=== PATIENT | female | born 1960 | race Caucasian/White ===

== ENCOUNTER 2019-01-28 09:26 | Emergency (ER) | payer OTHER ==
[2019-01-28 10:55] LABS: Absolute Lymphocytes (CBC) 1.7 K/uL (0.7-4.9); Basophils % 0.8 % (0-1.3); Hematocrit 42.7 % (36.0-45.0); Lymphocytes % 33.3 % (15.3-44.8); MPV 8.4 fL (7.6-11.3); RBC Red Blood Cell Count 4.62 M/uL (3.86-4.86)
[2019-01-28 11:13] LABS: Albumin 3.4 g/dL (3.4-5.0); Bilirubin Total 0.3 mg/dL (0.2-1.0); Potassium 4.1 mmol/L (3.5-5.1); Protein, Total 7.4 g/dL (6.4-8.2)
--- NOTE | 2019-01-28 11:34 | ER ---
Nurse's Notes [facility] Name: Karla Morales Age: 58 yrs Sex: Female : 1960 Arrival Date: 01/28/2019 Time: 09:31 Bed 7 Private MD: Diagnosis: Paresthesia of skin;Idiopathic peripheral autonomic neuropathy Presentation: 01/28 09:37 Presenting complaint: Patient states: Numbness to the face that started approx 1 week sg ago, reports feeling the numbness to the lips 1 week ago that has now spread to the cheek and left side of face. pt denies numbness/weakness in extremities at this time. Transition of care: patient was not received from another setting of care. Onset of symptoms was January 28, 2019. Risk Assessment: Do you want to hurt yourself or someone else? Patient reports no desire to harm self or others. Initial Sepsis Screen: Does the patient meet any 2 criteria? No. Patient's initial sepsis screen is negative. Does the patient have a suspected source of infection? No. Patient's initial sepsis screen is negative. Care prior to arrival: None. 09:37 Acuity: MARY 3 sg 09:37 Method Of Arrival: Ambulatory sg Historical: - Allergies: 09:48 PENICILLINS; sg - Home Meds: 09:48 lisinopril 20 mg Oral tab 1 tab once daily [Active]; sertraline 50 mg oral tab 1 tab sg once daily [Active]; simvastatin 20 mg Oral tab 1 tab once daily [Active]; - PMHx: 09:48 Anxiety; Depression; sg - PSHx: 09:48 None; sg - Immunization history:: Adult Immunizations not up to date. - Social history:: Smoking status: Patient/guardian denies using tobacco. - Ebola Screening: : Patient negative for fever greater than or equal to 101.5 degrees Fahrenheit, and additional compatible Ebola Virus Disease symptoms Patient denies exposure to infectious person Patient denies travel to an Ebola-affected area in the 21 days before illness onset No symptoms or risks identified at this time. Screenin:52 Abuse screen: Denies threats or abuse. Nutritional screening: No deficits noted. tw2 Tuberculosis screening: No symptoms or risk factors identified. Fall Risk None identified. Assessment: 10:34 General: Appears in no apparent distress. well groomed, well developed, well nourished, sg Behavior is calm, cooperative, appropriate for age. Pain: Denies pain. Neuro: Level of Consciousness is awake, alert, obeys commands, Oriented to person, place, time, situation, Land Economist are equal bilaterally Moves all extremities. Full function Gait is steady, Speech is normal, Facial symmetry appears normal, Pupils are PERRLA, Numbness in left cheek and mouth. Cardiovascular: Heart tones S1 S2 present Capillary refill is brisk in bilateral fingers Patient's skin is warm and dry. Chest pain is denied. Respiratory: Airway is patent Respiratory effort is even, unlabored, Respiratory pattern is regular, symmetrical. GI: No signs and/or symptoms were reported involving the gastrointestinal system. : No signs and/or symptoms were reported regarding the genitourinary system. EENT: No signs and/or symptoms were reported regarding the EENT system. Derm: Skin is pink, warm \T\ dry. Musculoskeletal: Circulation, motion, and sensation intact. Range of motion: intact in all extremities. 11:18 Reassessment: Patient appears in no apparent distress at this time. No changes from tw2 previously documented assessment. Patient and/or family updated on plan of care and expected duration. Pain level reassessed. Patient is alert, oriented x 3, equal unlabored respirations, skin warm/dry/pink. Vital Signs: 09:41 BP 181 / 88; Pulse 61; Resp 18; Pulse Ox 100% on R/A; sg 09:45 Temp 97.1; Weight 81.65 kg; Height 5 ft. 4 in. (162.56 cm); Pain 0/10; sg 11:18 BP 153 / 72; Pulse 56; Resp 17; Pulse Ox 98% on R/A; tw2 09:45 Body Mass Index 30.90 (81.65 kg, 162.56 cm) sg ED Course: 09:31 Patient arrived in ED. mr 09:36 Ronal Ceballos, RN is Primary Nurse. sg 09:37 Arm band placed on. sg 09:37 Bed in low position. Call light in reach. tw2 09:41 Triage completed. sg 09:51 Ryan Temple MD is Attending Physician. ps1 10:34 Initial lab(s) drawn, by me, sent to lab. sg 10:34 Inserted saline lock: 20 gauge in left antecubital area, using aseptic technique. tw2 ,using aseptic technique. FEDERICA Villeda Blood collected. 11:32 Tim Ruffin MD is Referral Physician. ps1 11:52 No provider procedures requiring assistance completed. IV discontinued, intact, tw2 bleeding controlled, No redness/swelling at site. Pressure dressing applied. Administered Medications: No medications were administered Outcome: 11:34 Discharge ordered by MD. ps1 11:52 Discharged to home ambulatory. tw2 11:52 Condition: stable 11:52 Discharge instructions given to patient, significant other, Instructed on discharge instructions, follow up and referral plans. medication usage, Demonstrated understanding of instructions, follow-up care, medications, Prescriptions given X 1. 11:53 Patient left the ED. tw2 Signatures: Ronal Ceballos RN RN India Chen mr Jie Fowler RN RN tw2 Ryan Temple MD MD ps1
--- NOTE | 2019-01-28 11:34 | EDPHYS ---
Physician Documentation [facility] Name: Karla Morales Age: 58 yrs Sex: Female : 1960 Arrival Date: 01/28/2019 Time: 09:31 Bed 7 Private MD: ED Physician Ryan Temple HPI: 01/28 10:12 This 58 yrs old Female presents to ER via Ambulatory with complaints of ps1 Numbness Of Face. 10:12 The patient's problem is reported as numbness of left side of face. Onset: The ps1 symptoms/episode began/occurred 4 week(s) ago. Duration: indulent and intermittent. Context: states that she has had intermittent sinus pressure worse in morning and at night. Pressure in ear. No facial droop, slurred speech, abnormal taste, or other FND. . Severity of symptoms: At their worst the symptoms were very mild. . Historical: - Allergies: 09:48 PENICILLINS; sg - Home Meds: 09:48 lisinopril 20 mg Oral tab 1 tab once daily [Active]; sertraline 50 mg oral tab 1 tab sg once daily [Active]; simvastatin 20 mg Oral tab 1 tab once daily [Active]; - PMHx: 09:48 Anxiety; Depression; sg - PSHx: 09:48 None; sg - Immunization history:: Adult Immunizations not up to date. - Social history:: Smoking status: Patient/guardian denies using tobacco. - Ebola Screening: : Patient negative for fever greater than or equal to 101.5 degrees Fahrenheit, and additional compatible Ebola Virus Disease symptoms Patient denies exposure to infectious person Patient denies travel to an Ebola-affected area in the 21 days before illness onset No symptoms or risks identified at this time. ROS: 10:12 Constitutional: Negative for fever, chills, and weight loss, Eyes: Negative for injury, ps1 pain, redness, and discharge, ENT: Negative for injury, pain, and discharge, Cardiovascular: Negative for chest pain, palpitations, and edema, Respiratory: Negative for shortness of breath, cough, wheezing, and pleuritic chest pain, Abdomen/GI: Negative for abdominal pain, nausea, vomiting, diarrhea, and constipation, MS/Extremity: Negative for injury and deformity, Skin: Negative for injury, rash, and discoloration, Psych: Negative for depression, anxiety, suicide ideation, homicidal ideation, and hallucinations. 10:12 Neuro: Positive for numbness, of the left cheek. Exam: 10:12 Constitutional: This is a well developed, well nourished patient who is awake, alert, ps1 and in no acute distress. Head/Face: Normocephalic, atraumatic. Eyes: Pupils equal round and reactive to light, extra-ocular motions intact. Lids and lashes normal. Conjunctiva and sclera are non-icteric and not injected. Chest/axilla: Normal chest wall appearance and motion. Nontender with no deformity. No lesions are appreciated. Cardiovascular: Regular rate and rhythm. No gallops, murmurs, or rubs. Normal PMI, no JVD. No pulse deficits. Respiratory: Lungs have equal breath sounds bilaterally, clear to auscultation and percussion. No rales, rhonchi or wheezes noted. No increased work of breathing, no retractions or nasal flaring. Abdomen/GI: Soft, non-tender, with normal bowel sounds. No distension or tympany. No guarding or rebound. No evidence of tenderness throughout. MS/ Extremity: Pulses equal, no cyanosis. Neurovascular intact. Full, normal range of motion. Neuro: Awake and alert, GCS 15, oriented to person, place, time, and situation. Cranial nerves II-XII grossly intact. Sensory grossly intact. 10:12 ENT: External ear(s): are unremarkable, Ear canal(s): are normal, TM's: are normal, evidence of TMJ with jaw deviation to right with opening. 10:12 Neuro: Cerebellar function: is grossly normal, normal finger to nose testing, heel to brock testing is normal, able to perform alternating rapid hand movements. 11:38 CT study not indicated or reported. Reason for not performing CT: Length of symptoms ps1 do not require emergent head CT. MRI is test of choice and will be coordinated outpatient. Vital Signs: 09:41 BP 181 / 88; Pulse 61; Resp 18; Pulse Ox 100% on R/A; sg 09:45 Temp 97.1; Weight 81.65 kg; Height 5 ft. 4 in. (162.56 cm); Pain 0/10; sg 11:18 BP 153 / 72; Pulse 56; Resp 17; Pulse Ox 98% on R/A; tw2 09:45 Body Mass Index 30.90 (81.65 kg, 162.56 cm) MDM: 10:24 Patient medically screened. ps1 11:34 Differential diagnosis: CVA, paresthesia, peripheral neuropathy, Enrique's palsy, Mass, ps1 and others. Data reviewed: vital signs, nurses notes, lab test result(s). Counseling: I had a detailed discussion with the patient and/or guardian regarding: the historical points, exam findings, and any diagnostic results supporting the discharge/admit diagnosis, lab results, the need for outpatient follow up, a neurologist, For outpatient evaluation with MRI. Length of symptoms and lack of functional disability do not require emergent evaluation. Referred to Neurology. Will start medrol dosepack for symptoms. Stable and otherwise normal neurologic examination. , to return to the emergency department if symptoms worsen or persist or if there are any questions or concerns that arise at home. 01/28 10:24 Order name: CBC with Diff; Complete Time: 10:58 ps1 01/28 10:24 Order name: CMP; Complete Time: 11:30 ps1 01/28 10:24 Order name: Urine Dipstick-Ancillary (obtain specimen); Complete Time: 11:32 ps1 01/28 11:33 Order name: Urine Dipstick--Ancillary (enter results) bd Administered Medications: No medications were administered Disposition: 01/28/19 11:34 Discharged to Home. Impression: Paresthesia of skin, Idiopathic peripheral autonomic neuropathy. - Condition is Stable. - Discharge Instructions: Paresthesia, Peripheral Neuropathy. - Prescriptions for Medrol (Chevy) 4 mg Oral Tablets, Dose Pack - take 1 tablet by ORAL route as directed - follow package instructions; 1 packet. - Work release form, Medication Reconciliation Form, Thank You Letter, Antibiotic Education, Prescription Opioid Use form. - Follow up: Tim Ruffin MD; When: 48 Hours; Reason: Further diagnostic work-up, Recheck today's complaints, Continuance of care. Follow up: Emergency Department; When: As needed; Reason: Worsening of condition. - Problem is an ongoing problem. - Symptoms are unchanged. Signatures: Dispatcher [employer] EDRonal Peters RN RN sg Jie Fowler RN RN tw2 Ryan Temple MD MD ps1 Corrections: (The following items were deleted from the chart) 11:53 11:34 01/28/2019 11:34 Discharged to Home. Impression: Paresthesia of skin; Idiopathic tw2 peripheral autonomic neuropathy. Condition is Stable. Forms are Work release form, Medication Reconciliation Form, Thank You Letter, Antibiotic Education, Prescription Opioid Use. Follow up: Tim Ruffin; When: 48 Hours; Reason: Further diagnostic work-up, Recheck today's complaints, Continuance of care. Follow up: Emergency Department; When: As needed; Reason: Worsening of condition. Problem is an ongoing problem. Symptoms are unchanged. ps1
[2019-01-28 11:54] LABS: Urine Blood NEGATIVE (NEG); Urine Glucose NEGATIVE (NEG); Urine Protein NEGATIVE (NEG); Urine Specific Gravity 1.025 (1.005-1.030)
[2019-01-28 19:09] VITALS: BP 181/88; O2SAT 100
[2019-01-28 19:13] VITALS: TEMP 97.1
== END 2019-01-28 11:53 | disposition home or self-care (01) ==
LOC: ER 09:26
DX: G90.09 Other idiopathic peripheral autonomic neuropathy (principal); F41.9 Anxiety disorder, unspecified; F32.9 Major depressive disorder, single episode, unspecified; Z88.0 Allergy status to penicillin
CPT/HCPCS: 36415; 80053; 81003; 85025; 99283

== ENCOUNTER 2020-12-15 11:19 | Day surgery (SDC) | payer BC ==
[2020-12-15] MEDS ORDERED: Ringers Lactate 1,000 ML IV ONE (12:06)
[2020-12-15] MEDS ORDERED: ACETAMINOPHEN 500 MG TAB PO ONE (12:50)
[2020-12-15] MEDS ORDERED: CELECOXIB 100 MG CAPSULE PO ONE (12:50)
[2020-12-15] MEDS ORDERED: CELECOXIB 100 MG CAPSULE ONE (14:49)
[2020-12-15] MEDS ORDERED: ACETAMINOPHEN 500 MG TAB ONE (14:50)
[2020-12-15] MEDS ORDERED: SILVER NITRATE 1 APPL TOP ONE (15:12)
[2020-12-15] MEDS ORDERED: LIDOCAINE 1% W/EPI 1:100,000 MDV 20 ML VIAL ONE (15:12)
[2020-12-15] MEDS ORDERED: propofoL 200 MG/20 ML VIAL IV ONE (16:03)
[2020-12-15] MEDS ORDERED: FENTANYL CITR 100 MCG/2 ML ONE (16:04)
[2020-12-15] MEDS ORDERED: LIDOCAINE 2% MPF 5 ML VIAL ONE (16:04)
[2020-12-15] MEDS: FENTANYL CITR 100 MCG/2 ML ONE ×2 (16:53→17:06)
[2020-12-15] MEDS ORDERED: dexAMETHasone 10 MG/ML VIAL ONE (16:53)
[2020-12-15] MEDS ORDERED: ONDANSETRON 4 MG/2 ML VIAL ONE (17:04)
[2020-12-15] MEDS ORDERED: IBUPROFEN 200 MG TAB PO PRN (17:08)
--- NOTE | 2020-12-15 17:13 | P.BOP ---
Preoperative diagnosis: PMB Postoperative diagnosis: same and endometrial polyps Primary procedure: hysteroscopy d/c polypectomy Ice Cream Chef: Tia Strange Estimated blood loss: min Specimen: EMC polyps Findings: same Anesthesia: General Complications: None Transferred to: Recovery Room Condition: Good
[2020-12-15 17:26] VITALS: TEMP 98.1
[2020-12-15] MEDS ORDERED: HYDROCODONE/APAP 7.5/325 MG TAB ONE (18:17)
[2020-12-15 19:06] VITALS: BP 158/68; O2SAT 98
--- NOTE | 2020-12-15 20:54 | OP ---
Date of Procedure: 12/15/2020 Surgeon: Amena Ramos MD Preoperative Diagnoses: Postmenopausal bleeding. Postoperative Diagnosis: Postmenopausal bleeding and endometrial polyps. Procedures Performed: Hysteroscopy, polypectomy, D and C. Anesthesia: General. Specimens: Endometrial polyps and curettings. Complications: No complications. Drains: No drains. Condition: Stable. Estimated Blood Loss: Minimal. Indication: The patient is a 60-year-old with postmenopausal bleeding, endometrial thickening showed on a transvaginal ultrasound. To rule out atypia and malignancy, polypectomy and D and C were recom mended and she was consented and brought to the hospital after informed consent was re-verified with her at the bedside. Procedure In Detail: After questions and answers were done to their satisfaction, she was brought ba to the OR, placed in supine fashion on the operating table and general anesthesia was given. She was placed in a dorsal lithotomy position and pelvic exam was performed. Uterine prolapse was noted to the lowest point for point C was -2. Vulva and vagina were prepped and draped in a sterile fashio n. Speculum was placed to expose the cervix. Anterior lip grasped with 2 Allis clamps. Diagnostic SlimLine hysteroscope introduced through the cervical canal and traversed at the cervical canal under direct vision into the uterine cavity. There was a large polyp in the endometrial canal and 2 other small polyps. Endometrium appeared to be unremarkable. Scope was pulled out. Cervix dilated to 16 -Mongolian. Jose Ramon forceps was used to retrieve polyp fragments and then the entire polyp. Curettings were performed. The entire polyp was removed. Curettings and polyps were handed out for permanent pathology. Instrument, needle, and sponge counts were correct at the end of the case. The patient t olerated the procedure well. EBL was minimal. The patient was recovered from anesthesia and taken t o PACU in stable condition. She will follow up with me in 1 week for pathology results. JOHAN/ERIN Voice ID: [id number] Report ID: [id number]
== END 2020-12-15 19:05 | disposition home or self-care (01) ==
LOC: OR 11:19
PROVIDERS: ATTEND Obstetrics & Gynecology
PROC: 0UDB7ZX Extraction of Endometrium, Via Natural or Artificial Opening, Diagnostic (ICD-10-PCS; 2020-12-15)
PROC: 0UJD8ZZ Inspection of Uterus and Cervix, Via Natural or Artificial Opening Endoscopic (ICD-10-PCS; 2020-12-15)
PROC: 0UB97ZX Excision of Uterus, Via Natural or Artificial Opening, Diagnostic (ICD-10-PCS; principal; 2020-12-15 14:30)
DX: N84.0 Polyp of corpus uteri (principal); N95.0 Postmenopausal bleeding; Z20.822 Contact with and (suspected) exposure to COVID-19
CPT/HCPCS: 88305; 58558; U0003; J2704; J3010 ×2; J1100; J7120; J2405

== ENCOUNTER 2024-04-25 04:31 | Emergency (ER) | payer BC, OTHER ==
--- OUTSIDE RECORDS SUMMARY | 2024-04-25 04:35 | XMS REPORT | Clinical Summary ---
Author Name Unknown Organization [facility] Address [address] [place] [address] Care Team Providers Care Investigation Specialist Name Role Phone Romina Oneal Unavailable [phone] Quita Schultz Unavailable [phone] Florentino Capps MD Primary Care Provider Allergies Active Allergy Reactions Criticality Noted Date Comments Penicillins Hives,Itching,Rash Low 03/27/1971 Medications simvastatin (ZOCOR) 20 mg tablet 07/12/2022 Active metFORMIN (GLUCOPHAGE-XR) 750 mg 24 hr tablet 09/22/2022 Active lisinopriL-hydroch lorothiazide (PRINZIDE,ZESTORET IC) 20-12.5 mg per tablet Active FLUoxetine (PROzac) 20 MG tablet 04/20/2022 Active cholecalciferol, vitamin D3, (Vitamin D3) 25 mcg (1,000 unit) chew Active Active Problems Problem Noted Date Diagnosed Date History of melanoma in situ of skin 10/17/2022 Malignant melanoma of skin of right upper limb 0 09/14/2022 Cancer Staging:Clinical stage from 09/27/2022:Stage IB(cT2a, cN0, cM0) - Signed by Imelda Campbell PA on 09/27/2022 Overview (09/14/2022): Added automatically from request for surgery [id number] Assessment & Plan (09/27/2022 2:21 PM CDT): Ms. Morales is a 62-year-old female who is newly diagnosed with what appears to be a clinical T2a, clinical N0 melanoma of the right upper extremity. This was initially diagnosed by shave biopsy on 08/12/2022 and followed by a Mohs excision with a 0.9 cm margin on 08/26/2022. We have the pathology report and slides from the 08/26/2022 excision, and have requested the pathology report and slides from the original 08/12/22 biopsy. There is no evidence of residual, satellite, in-transit or metastatic disease on our exam today. She is in fair general health with well-controlled type 2 diabetes, hypertension and hypercholesterolemia. We discussed the pathology, staging and surgical management of melanoma in detail with her. For her disease, a 1-2 centimeter wide excision of the melanoma primary site is the current standard of care. The margins of excision that have already been obtained do not quite meet that criteria. Therefore, we recommend a reexcision of the site to achieve at least a 1 cm margin around the primary melanoma. We also recommend intraoperative lymphatic mapping and sentinel lymph node biopsy as part of the surgical procedure. Her surgery date has been scheduled for 10/19/2022. We will bring her back on a different day for preoperative testing to include blood work, chest x-ray, EKG, anesthesia assessment and lymphoscintigraphy. She will be scheduled for postoperative assessment approximately 3 weeks after surgery. We will follow-up on acquisition of the original biopsy report and pathology slide review. We will convene by phone to finalize signing of surgical consent forms. The patient's initial questions were answered satisfactorily by Dr. Capps who interviewed and examined the patient and developed the above outlined plan of care. The patient was also invited to contact our team directly via [employer] for any additional questions or concerns and have instructions on how to do so. Surgical History Surgery Date Site/Laterality Comments COLONOSCOPY VAGINAL DELIVERY 1978, 1982, 1985 Medical History Medical History Date Comments Hypertension Hyperlipidemia Fatty liver Gastric reflux Arthritis Type 1 diabetes mellitus Depressive disorder Anxiety Malignant melanoma Family History Medical History Relation Name Comments Colon cancer Brother 1 Jose Melanoma Brother 1 Jose Skin cancer Brother 2 Al Melanoma Maternal Aunt Relation Name Status Comments Brother 1 Jose Brother 2 Al Maternal Aunt Social History Tobacco Use Types Packs/Day Years Used Date Smoking Tobacco: Never Smokeless Tobacco: Never Tobacco Cessation:Counseling Given: Not Answered Alcohol Use Standard Drinks/Week Comments Not Currently 0 (1 standard drink = 0.6 oz pur e alcohol) May a drink two times a year Comments Unknown Sex and Gender Information Value Date Recorded Sex Assigned at Not on file Legal Sex Female 2:47 PM CDT Gender Identity Not on file Sexual Orientation Not on file Obstetrics History Plan of Treatment Health Maintenance Due Date Last Done Comments Pneumococcal Vaccine: 50+ Ye ars (1 of 1 - PCV) 2009 COVID-19 Vaccine (2023-2 5 season) 2023 Influenza Vaccine (#1) 2023 Pneumococcal Vaccine Aged Out No long er eligible based on patient's age to complete this topic Insurance [facility] [place] PPO POS [facility] [place] PPO POS Care Teams Investigation Specialist Relationship Specialty [place] [id number] [facility] [address] [place] [address] PCP - External Referring Dermatology 09/10/22 Quita Schultz FNP [address] [facility] [address] [place] [address] PCP - External Primary Care Provider Family Practice 09/12/22 Florentino Capps MD [address] [place] [address] [email or web address] PCP - General Melanoma Surgery 09/14/22
[2024-04-25] MEDS ORDERED: ACETAMINOPHEN 500 MG TAB ONE (05:08)
[2024-04-25] MEDS ORDERED: GUAIFENESIN/DM 5 ML UCUP ONE (05:09)
[2024-04-25] MEDS ORDERED: IBUPROFEN 400 MG TAB ONE (05:09)
[2024-04-25] MEDS ORDERED: NA CHLORIDE 0.9% 1,000 ML ONE (05:10)
[2024-04-25 06:08] LABS: Absolute Lymphocytes (CBC) 0.5 K/uL (0.7-4.9); Absolute Monocytes 0.3 K/uL (0.1-1.3); Absolute Neutrophil 2.8 K/uL (1.8-8.0); Basophils % 0.6 % (0-1.3); Eosinophils % 0.1 % (0-4.4); Hematocrit 39.1 % (36.0-45.0); Hemoglobin 13.3 g/dL (12.0-15.0); Lymphocytes % 13.2 % (15.3-44.8); MCH 30.6 pg (27.0-35.0); MCHC 34.1 g/dL (32.0-36.0); MCV 89.6 fL (80-100); MPV 9.2 fL (7.6-11.3); Monocytes % 9.2 % (3.3-12.3); Neutrophils % 76.9 % (41.7-73.7); Platelets 165 thou/uL (152-406); RBC Red Blood Cell Count 4.37 M/uL (3.86-4.86); Red Cell Distribution Width 13.7 % (12.1-15.2)
[2024-04-25 06:14] LABS: SARS-CoV-2 Antigen CONTROL BLUE LINE VIS/BG OK; SARS-CoV-2 Antigen Rapid Res Negative (Negative)
[2024-04-25 06:28] LABS: Albumin 3.3 g/dL (3.4-5.0); Albumin/Globulin Ratio 0.8 (1.1-1.8); Anion Gap 8.2 mEq/L (5.0-15.0); Bilirubin Total 0.5 mg/dL (0.2-1.0); Potassium 3.2 mEq/L (3.5-5.1); Protein, Total 7.3 g/dL (6.4-8.2)
--- NOTE | 2024-04-25 06:57 | EDPHYS ---
Physician Documentation [facility] Name: Karla Morales Age: 64 yrs Sex: Female : 1960 Arrival Date: 04/25/2024 Time: 04:31 Bed 18 Private MD: ED Physician Wei Fajardo HPI: 04/25 04:35 This 64 yrs old Female presents to ER via Unassigned with complaints of sp4 Congestion, Fever, Dizziness. 06:04 64-year-old female presents with complaint of congestion fever dizziness. The patient sp4 is feeling unwell and reports fever of 102 at home. History of diabetes type 2, hypertension allergy to penicillin.. Historical: - Allergies: 04:39 PENICILLINS; ha1 - Home Meds: 04:39 lisinopril 20 mg Oral tab 1 tab once daily [Active]; simvastatin 20 mg Oral tab 1 tab ha1 once daily [Active]; - PMHx: 04:39 Anxiety; Depression; ha1 - Immunization history:: Adult Immunizations not up to date. - Infectious Disease History:: Denies. - Social history:: Smoking status: Patient denies any tobacco usage or history of. - Family history:: not pertinent. ROS: 06:04 Constitutional: Positive for fever, chills, dizziness, positive for sore throat and sp4 congestion 06:04 All other systems are negative, Exam: 06:04 Constitutional: This is a well developed, well nourished patient who is awake, alert, sp4 and in no acute distress. Head/Face: Normocephalic, atraumatic. Eyes: Pupils equal round and reactive to light, extra-ocular motions intact. Lids and lashes normal. Conjunctiva and sclera are not injected. Cornea within normal limits. Periorbital areas with no swelling, redness, or edema. ENT: Nares patent. No nasal discharge, no septal abnormalities noted. Tympanic membranes are normal and external auditory canals are clear. Oropharynx with no redness, swelling, or masses, exudates, or evidence of obstruction, uvula midline. Mucous membranes moist. Neck: Trachea midline, no thyromegaly or masses palpated, and no cervical lymphadenopathy. Supple, full range of motion without nuchal rigidity, or vertebral point tenderness. Chest/axilla: Normal chest wall appearance and motion. Nontender with no deformity. No lesions are appreciated. Cardiovascular: Regular rate and rhythm with a normal S1 and S2. No gallops, murmurs, or rubs. Normal PMI, no JVD. No pulse deficits. Respiratory: Lungs have equal breath sounds bilaterally, clear to auscultation and percussion. No rales, rhonchi or wheezes noted. No increased work of breathing, no retractions or nasal flaring. Abdomen/GI: Soft, with normal bowel sounds. No distension or tympany. No guarding or rebound. No evidence of tenderness throughout. Back: No spinal tenderness. No costovertebral tenderness. Skin: Warm, dry with normal turgor. Normal color with no rashes, no lesions, and no evidence of cellulitis. MS/ Extremity: Pulses equal, no cyanosis. Neurovascular intact. Full, normal range of motion. Neuro: Awake and alert, GCS 15, oriented to person, place, time, and situation. Cranial nerves II-XII grossly intact. Motor strength 5/5 in all extremities. Sensory grossly intact. Psych: Awake, alert, with orientation to person, place and time. Behavior, mood, and affect are within normal limits Vital Signs: 04:35 BP 141 / 80; Pulse 94; Resp 19; Temp 99.7; Pulse Ox 100% ; ay 04:39 BP 141 / 80; Pulse 103; Resp 19 S; Temp 101.5; Pulse Ox 95% on R/A; Weight 79.38 kg; ha1 Height 5 ft. 4 in. ; 05:00 BP 122 / 65; Pulse 89; Resp 20; Pulse Ox 94% on R/A; ay 04:39 Body Mass Index 30.04 (79.38 kg, 162.56 cm) ha1 [place] Coma Score: 04:40 Eye Response: spontaneous(4). Motor Response: obeys commands(6). Verbal Response: ay oriented(5). Total: 15. 06:04 Eye Response: spontaneous(4). Motor Response: obeys commands(6). Verbal Response: sp4 oriented(5). Total: 15. MDM: 04:36 Medical Screening Exam initiated sp4 04/26 02:01 Differential diagnosis: viral Infection, bacterial infection, URI, bronchitis, sp4 pneumonia UTI, gastroenteritis. Data reviewed: vital signs, nurses notes. 02:02 Consideration of Admission/Observation Escalation of care including sp4 admission/observation considered. ED course: Patient is positive for influenza A. Also has signs of mild acute viral hepatitis. Stable for discharge home. 04/25 04:36 Order name: Influenza Screen (a \T\ B); Complete Time: 06:45 sp4 04/25 04:36 Order name: SARS RAPID; Complete Time: 06:45 sp4 04/25 04:36 Order name: Strep; Complete Time: 06:45 sp4 04/25 04:59 Order name: CBC with Diff; Complete Time: 06:45 sp4 04/25 04:59 Order name: CMP; Complete Time: 06:45 sp4 04/25 06:18 Order name: Throat Culture EDMS 04/25 04:59 Order name: IV Saline Lock; Complete Time: 05:31 sp4 04/25 04:59 Order name: Labs collected and sent; Complete Time: 05:31 sp4 Administered Medications: 04/25 05:31 Drug: NS 0.9% IV 1000 ml IV at 1 bolus Per protocol; to be given as a bolus over 60 ay minutes Route: IV; Rate: 1 bolus; Site: left antecubital; 07:00 Follow up: IV Status: Completed infusion; IV Intake: 1000ml ay 05:31 Drug: Ibuprofen PO 800 mg PO once Route: PO; ay 05:43 Follow up: Response: No adverse reaction ay 05:31 Drug: Acetaminophen PO 1000 mg PO once Route: PO; ay 05:43 Follow up: Response: No adverse reaction ay 05:31 Drug: Dextromethorphan-Guaifenesin PO Liquid 10 mg-100 mg/5 mL 20 ml PO once Route: PO; ay 05:42 Follow up: Response: No adverse reaction ay Disposition: 04/26 02:02 Chart complete. sp4 Disposition Summary: 04/25/24 06:57 Discharge Ordered Notes: Location: Home sp4 Problem: new sp4 Symptoms: have improved sp4 Condition: Stable sp4 Diagnosis - Influenza A sp4 Followup: sp4 - With: Private Physician - When: 7 - 10 days - Reason: Recheck today's complaints Discharge Instructions: - Discharge Summary Sheet sp4 - Influenza, Adult, [id number] sp4 Forms: - Patient Portal Instructions sp4 Prescriptions: - dextromethorphan-guaifenesin 20-400 mg Oral tablet - take 1 tablet ORAL route every 6 hours PRN cough; 50 tablet; Refills: 0, sp4 Product Selection Permitted - Ibuprofen 600 mg Oral Tablet - take 1 tablet ORAL route every 6 hours As needed take with food; 30 tablet; sp4 Refills: 0, Product Selection Permitted - Tamiflu 75 mg Oral capsule - take 1 tablet ORAL route every 12 hours for 5 days; 10 tablet; Refills: 0, sp4 Product Selection Permitted - ondansetron 8 mg Oral Tablet,disintegrating - take 1 tablet ORAL route every 8 hours PRN nausea; 30 tablet; Refills: 0, sp4 Product Selection Permitted Signatures: Dispatcher [employer] EDMS Lidia Pate, RN RN ha1 Wei Fajardo MD MD sp4 Odessa Bryant RN RN ay Corrections: (The following items were deleted from the chart) 04/25 04:36 04:36 Influenza Screen (A \T\ B)+BA.LAB.BRZ ordered. EDMS EDMS 04:36 04:36 SARS-COV-2 Antigen Rapid+I.LAB.BRZ ordered. EDMS EDMS 04:36 04:36 Group A Streptococcus Rapid Sc+BA.LAB.BRZ ordered. EDMS EDMS 04:59 04:59 CBC+H.LAB.BRZ ordered. EDMS EDMS 04:59 04:59 COMPREHENSIVE METABOLIC PANEL+C.LAB.BRZ ordered. EDMS EDMS
--- NOTE | 2024-04-25 06:57 | ER ---
Nurse's Notes [facility] Name: Karla Morales Age: 64 yrs Sex: Female : 1960 Arrival Date: 04/25/2024 Time: 04:31 Bed 18 Private MD: Diagnosis: Influenza A Presentation: 04/25 04:39 Chief complaint: Patient states: NASAL CONGESTION, HEADACHES, FEVER, AND DIZZINESS. ha1 04:39 Coronavirus screen: Client denies travel out of the [place] in the last 14 days. Ebola ha1 Screen: No symptoms or risks identified at this time. Initial Sepsis Screen: Does the patient meet any 2 criteria? No. Patient's initial sepsis screen is negative. Does the patient have a suspected source of infection? No. Patient's initial sepsis screen is negative. Risk Assessment: Do you want to hurt yourself or someone else? Patient reports no desire to harm self or others. Onset of symptoms was April 25, 2024. 04:39 Method Of Arrival: Wheelchair ha1 04:39 Acuity: MARY 4 ha1 Triage Assessment: 04:39 General: Appears uncomfortable, Behavior is calm, cooperative. Pain: Complains of pain ha1 in BODY ACHES Pain currently is 8 out of 10 on a pain scale. Neuro: Level of Consciousness is awake, alert, obeys commands, Oriented to person, place, time, situation. Neuro: Reports dizziness. Cardiovascular: Respiratory: Reports NASAL CONGESTION Airway is patent Respiratory effort is even, unlabored, Respiratory pattern is regular, symmetrical. GI: No signs and/or symptoms were reported involving the gastrointestinal system. Abdomen is round non-distended. Historical: - Allergies: 04:39 PENICILLINS; ha1 - Home Meds: 04:39 lisinopril 20 mg Oral tab 1 tab once daily [Active]; simvastatin 20 mg Oral tab 1 tab ha1 once daily [Active]; - PMHx: 04:39 Anxiety; Depression; ha1 - Immunization history:: Adult Immunizations not up to date. - Infectious Disease History:: Denies. - Social history:: Smoking status: Patient denies any tobacco usage or history of. - Family history:: not pertinent. Screenin:40 [facility] ED Fall Risk Assessment (Adult) History of falling in the last 3 months, ay including since admission No falls in past 3 months (0 pts) Confusion or Disorientation No (0 pts) Intoxicated or Sedated No (0 pts) Impaired Gait No (0 pts) Mobility Assist Device Used No (0 pt) Altered Elimination No (0 pt) Score/Fall Risk Level 0 - 2 = Low Risk Oriented to surroundings, Maintained a safe environment, Educated pt \T\ family on fall prevention, incl call for assistance when getting out of bed. 04:51 Abuse screen: Denies threats or abuse. Denies injuries from another. Nutritional ha1 screening: No deficits noted. Tuberculosis screening: No symptoms or risk factors identified. Assessment: 04:40 General: Appears in no apparent distress. uncomfortable, Behavior is calm, cooperative. ay Pain: Complains of pain in throat. Neuro: Level of Consciousness is awake, alert, obeys commands, Oriented to person, place, time, situation, Speech is normal. Cardiovascular: Denies chest pain, nausea, vomiting, Capillary refill < 3 seconds. Respiratory: Reports shortness of breath at rest cough that is non-productive, since 04/23/2024 Breath sounds are diminished bilaterally. GI: Abdomen is flat. : No signs and/or symptoms were reported regarding the genitourinary system. EENT: Reports nasal discharge that is watery. Derm: No signs and/or symptoms reported regarding the dermatologic system. 04:40 Respiratory: Reports Airway is patent Respiratory effort is even, unlabored, ay Vital Signs: 04:35 BP 141 / 80; Pulse 94; Resp 19; Temp 99.7; Pulse Ox 100% ; ay 04:39 BP 141 / 80; Pulse 103; Resp 19 S; Temp 101.5; Pulse Ox 95% on R/A; Weight 79.38 kg; ha1 Height 5 ft. 4 in. ; 05:00 BP 122 / 65; Pulse 89; Resp 20; Pulse Ox 94% on R/A; ay 04:39 Body Mass Index 30.04 (79.38 kg, 162.56 cm) ha1 [place] Coma Score: 04:40 Eye Response: spontaneous(4). Motor Response: obeys commands(6). Verbal Response: ay oriented(5). Total: 15. 06:04 Eye Response: spontaneous(4). Motor Response: obeys commands(6). Verbal Response: sp4 oriented(5). Total: 15. ED Course: 04:34 Patient arrived in ED. [id number] 04:35 Wei Fajardo MD is Attending Physician. sp4 04:40 No provider procedures requiring assistance completed. Inserted saline lock: 20 gauge ay in left antecubital area, using aseptic technique. 04:40 Patient has correct armband on for positive identification. Call light in reach. Side ay rails up X2. 04:48 Triage completed. ha1 04:56 Odessa Bryant RN is Primary Nurse. ay 05:31 CBC with Diff Sent. ay 05:31 CMP Sent. ay 05:43 Strep Sent. ay 05:43 SARS RAPID Sent. ay 05:43 Influenza Screen (a \T\ B) Sent. ay 07:34 IV discontinued, intact, bleeding controlled, No redness/swelling at site. Pressure ay dressing applied. Administered Medications: 05:31 Drug: NS 0.9% IV 1000 ml IV at 1 bolus Per protocol; to be given as a bolus over 60 ay minutes Route: IV; Rate: 1 bolus; Site: left antecubital; 07:00 Follow up: IV Status: Completed infusion; IV Intake: 1000ml ay 05:31 Drug: Ibuprofen PO 800 mg PO once Route: PO; ay 05:43 Follow up: Response: No adverse reaction ay 05:31 Drug: Acetaminophen PO 1000 mg PO once Route: PO; ay 05:43 Follow up: Response: No adverse reaction ay 05:31 Drug: Dextromethorphan-Guaifenesin PO Liquid 10 mg-100 mg/5 mL 20 ml PO once Route: PO; ay 05:42 Follow up: Response: No adverse reaction ay Medication: 04:40 VIS not applicable for this client. ay Intake: 07:00 IV: 1000ml; Total: 1000ml. ay Outcome: 06:57 Discharge ordered by . sp4 07:34 Discharged to home ambulatory, ay 07:34 Condition: stable 07:34 Discharge instructions given to patient, Instructed on discharge instructions, follow up and referral plans. medication usage, Demonstrated understanding of instructions, follow-up care, medications, Prescriptions given X 4, 07:35 Patient left the ED. ay Signatures: Eda Fink j6 Lidia Pate RN RN ha1 Wei Fajardo MD MD 4 [place]ubu, Awudu, RN RN ay
[2024-04-25 07:59] VITALS: TEMP 101.5
[2024-04-25 08:00] VITALS: BP 122/65; O2SAT 94
== END 2024-04-25 07:35 | disposition home or self-care (01) ==
LOC: ER 04:31
DX: J09.X2 Influenza due to identified novel influenza A virus with other respiratory manifestations (principal); Z11.52 Encounter for screening for COVID-19; Z88.0 Allergy status to penicillin
CPT/HCPCS: 87070; 85025; 36415; 87081; 80053; 87804 ×2; 87811; J7030